=== PATIENT | male | born 2000 | race Two or more races ===

== ENCOUNTER 2022-07-22 14:43 | Emergency (ER) | payer MEDICAID, OTHER ==
[~2022-07-22] VITALS: Ht 172.7 cm; Wt 61.2 kg
[2022-07-22] MEDS ORDERED: risperiDONE 0.25 MG TABLET PO ONE (16:00)
[2022-07-22 16:25] LABS: BASOPHILS % (AUTO) 0.5 % (0.0-2.0); EOSINOPHILS % (AUTO) 0.5 % (0.0-6.0); HEMATOCRIT 43 % (39-51); HEMOGLOBIN 14.5 g/dL (13.5-17.5); MEAN CORPUSCULAR HGB CONC 34 g/dl (31.0-36.0); MEAN CORPUSCULAR VOLUME 88 fL (80-96); MONOCYTES # (AUTO) 0.3 K/uL (0.1-1.30); MONOCYTES % (AUTO) 5.4 % (2.0-12.0); NEUTROPHILS % (AUTO) 78.6 % (43.0-81.0); PLATELET COUNT (AUTO) 308 K/uL (150-450); RED BLOOD CELL COUNT(AUTO) 4.89 MIL/uL (4.5-6.0); WHITE BLOOD COUNT (AUTO) 6.4 K/uL (4.3-11.0)
[2022-07-22 16:37] LABS: ALANINE AMINOTRANSFERASE 20 U/L (12-78); ALBUMIN 4.3 g/dL (3.4-5.0); ALKALINE PHOSPHATASE 105 U/L (46-116); ASPARTATE AMINOTRANSFERASE 20 U/L (15-37); BILIRUBIN,DIRECT 0.2 mg/dL (0.0-0.2); BILIRUBIN,TOTAL 0.5 mg/dL (0.2-1.0); CARBON DIOXIDE 26 mmol/L (21-32); CHLORIDE 103 mmol/L (98-107); CREATININE 0.9 mg/dL (0.6-1.3); GLUCOSE 101 mg/dL (74-106); POTASSIUM 3.6 mmol/L (3.5-5.1); SODIUM SERUM 136 mmol/L (136-145); TOTAL PROTEIN, SERUM 7.8 g/dL (6.4-8.2); UREA NITROGEN, BLOOD 9 mg/dL (7-18)
[2022-07-22] MEDS ORDERED: risperiDONE 1 MG TABLET ONE (16:42)
[2022-07-22 16:43] LABS: ALCOHOL, BLOOD < 3 mg/dL (0-0)
--- NOTE | 2022-07-22 17:25 | NUR ---
URINE COLLECTED AND SENT TO LAB
[2022-07-22 18:35] LABS: BILIRUBIN,URINE NEGATIVE (NEGATIVE); COLOR,URINE YELLOW (YELLOW); LEUKOCYTE ESTERASE ,URINE NEGATIVE (NEGATIVE); NITRITE, URINE NEGATIVE (NEGATIVE); PROTEIN,URINE NEGATIVE (NEGATIVE); UGLUCOSE NEGATIVE (NEGATIVE); UROBILINOGEN,URINE 0.2 EU/dL (0.2)
--- NOTE | 2022-07-22 19:16 | NUR ---
COVID SWAB TAKEN
--- NOTE | 2022-07-22 20:24 | NUR ---
CHRIS CALLED FOR PSYCH EVAL
--- NOTE | 2022-07-22 20:50 | NUR ---
[facility] [phone] CASEY CURRIE [phone]
--- NOTE | 2022-07-23 | NUR ---
NO CRISIS TEAM AVAILABLE AT THIS TIME; WILL ENDORSE TO DAY SHIFT FOR CRISIS TEAM TO EVAL PT.
[2022-07-23] MEDS ORDERED: OLANZAPINE 10 MG VIAL IM ONE ×3 (00:08→00:30)
--- NOTE | 2022-07-23 02:11 | NUR ---
PT SLEEPING IN [facility]. NO SIGNS OF DISTRESS NOTED. WILL CONT TO MONITOR PT.
--- NOTE | 2022-07-23 08:16 | NUR ---
PAGED [employer]OCIATE. NO RESPONSE. WILL CALL AGAIN
--- NOTE | 2022-07-23 09:18 | NUR ---
SPOKE WITH NITO WHO WILL COME TO SPEAK WITH PT FOR CORPORATE DIRECTOR TALENT ASSESSMENT CONSULT.
[2022-07-23] MEDS ORDERED: OLAN5TAB3 PO (10:07)
[2022-07-23] MEDS ORDERED: OLANZAPINE 5 MG TABLET PO ONE (10:30)
[2022-07-23] MEDS ORDERED: OLANZAPINE 5 MG TABLET ONE (10:30)
--- NOTE | 2022-07-23 10:42 | NUR ---
PT SIGNED AUTHORIZATION TO RELEASE INFO & FAXED OVER TO PTS PSYCHIATRIST, DR. ERICKSON AT [facility]. DR. GUTIERREZ WOULD LIKE TO CONSULT WITH PSYCHIATRIST.
--- NOTE | 2022-07-23 12:36 | NUR ---
DR. GUTIERREZ SPOKE TO PATIENTS FAMILY REGARDING PLAN OF CARE.
[2022-07-23 12:39] VITALS: BP 121/71
== END 2022-07-23 12:39 | disposition home or self-care (01) ==
LOC: ER 14:53
DX: R44.0 Auditory hallucinations (principal); F41.9 Anxiety disorder, unspecified; Z20.822 Contact with and (suspected) exposure to COVID-19; Z60.2 Problems related to living alone
CPT/HCPCS: 99285; 85025; 80048; 80076; 81003; 36415; 87426; 80143; 80320; 80307; 96372; C9803; J3490; G0480

== ENCOUNTER 2022-08-27 05:45 | Emergency (ER) | payer MEDICAID, OTHER ==
[~2022-08-27] VITALS: Ht 175.3 cm; Wt 74.4 kg
[~2022-08-27 05:45] MED LIST: OLAN5TAB3 PO
[2022-08-27 05:56] VITALS: BP 129/87
[2022-08-27] MEDS ORDERED: LORA-259 PO (06:13)
--- NOTE | 2022-08-27 06:21 | NUR ---
Patient discharged to home in stable condition. Written and verbal after care instructions given. Patient verbalizes understanding of instruction. Pt ambulatory with a steady gait
== END 2022-08-27 06:23 | disposition home or self-care (01) ==
LOC: ER 05:46
DX: R25.1 Tremor, unspecified (principal); F41.9 Anxiety disorder, unspecified; Z60.2 Problems related to living alone
CPT/HCPCS: 82962-TC

== ENCOUNTER 2024-07-30 03:53 | Emergency (ER) | payer MEDICAID, OTHER ==
[~2024-07-30] VITALS: Ht 175.3 cm; Wt 66.7 kg
[~2024-07-30 03:53] MED LIST changes: +LORA-259 PO
[2024-07-30] MEDS ORDERED: ACETAMINOPHEN 325 MG TABLET ONE (04:59)
[2024-07-30] MEDS: ACETAMINOPHEN 325 MG TABLET PO ONE (05:00)
[2024-07-30] MEDS: GABAPENTIN 100 MG CAPSULE PO ONE (05:00)
[2024-07-30] MEDS ORDERED: GABAPENTIN 100 MG CAPSULE ONE (05:00)
[2024-07-30 05:12] LABS: BASOPHILS % (AUTO) 0.5 % (0.0-2.0); EOSINOPHILS # (AUTO) 0.1 K/uL (0.0-0.7); EOSINOPHILS % (AUTO) 1.3 % (0.0-6.0); HEMATOCRIT 45 % (39-51); HEMOGLOBIN 15.9 g/dL (13.5-17.5); LYMPHOCYTES # (AUTO) 1.2 K/uL (0.8-4.8); LYMPHOCYTES % (AUTO) 20.2 % (20.0-44.0); MEAN CORPUSCULAR HEMOGLOBIN 31 PG (26.0-33.0); MEAN CORPUSCULAR HGB CONC 35 g/dl (31.0-36.0); MEAN CORPUSCULAR VOLUME 89 fL (80-96); MONOCYTES # (AUTO) 0.5 K/uL (0.1-1.30); MONOCYTES % (AUTO) 9.1 % (2.0-12.0); NEUTROPHILS % (AUTO) 68.9 % (43.0-81.0); PLATELET COUNT (AUTO) 263 K/uL (150-450); RED BLOOD CELL COUNT(AUTO) 5.09 MIL/uL (4.5-6.0); WHITE BLOOD COUNT (AUTO) 5.8 K/uL (4.3-11.0)
[2024-07-30 05:18] LABS: CALCIUM, SERUM 9.7 mg/dL (8.5-10.1); CREATININE 0.8 mg/dL (0.6-1.3); MAGNESIUM 1.9 mg/dL (1.8-2.4)
[2024-07-30 05:24] LABS: ALBUMIN 4.5 g/dL (3.4-5.0); BILIRUBIN,DIRECT 0.2 mg/dL (0.0-0.2); BILIRUBIN,TOTAL 0.8 mg/dL (0.2-1.0)
[2024-07-30 05:31] LABS: THYROID STIMULATING HORMONE 1.05 uIU/mL (0.358-3.74)
[2024-07-30 06:23] VITALS: BP 112/77; TEMP 98.2; O2SAT 99
== END 2024-07-30 06:23 | disposition home or self-care (01) ==
LOC: ER 04:00
DX: M79.10 Myalgia, unspecified site (principal); R07.9 Chest pain, unspecified; F41.9 Anxiety disorder, unspecified; Z20.822 Contact with and (suspected) exposure to COVID-19; Z60.2 Problems related to living alone
CPT/HCPCS: 36415; 71045-TC; 80048-TC; 80076-TC; 82550-TC; 83735-TC; 84443-TC; 85025-TC